=== PATIENT | male | born 1965 | race American Indian/Alaskan Native ===

== ENCOUNTER 2017-02-23 04:44 | Emergency (ER) | payer MEDICAID ==
[2017-02-23] MEDS ORDERED: TYLENOL #3 ONE (04:54)
[2017-02-23] MEDS ORDERED: TYLENOL #3 PO ONE (05:00)
[2017-02-23 05:01] VITALS: BP 162/105
== END 2017-02-23 05:40 | disposition left against medical advice (07) ==
LOC: ED 04:44
DX: K08.89 Other specified disorders of teeth and supporting structures (principal); K13.79 Other lesions of oral mucosa; Z53.21 Procedure and treatment not carried out due to patient leaving prior to being seen by health care provider